=== PATIENT | female | born 2000 | race Caucasian/White ===

== ENCOUNTER 2022-12-10 10:01 | Outpatient (CLI) | payer OTHER, SELFPAY | END 2022-12-10 10:02 | disposition home or self-care (01) | LOC: FRMREF 10:02 | PROVIDERS: PCP Physician Assistant Medical; Visit Provider Physician Assistant Medical | DX: Z00.00 Encounter for general adult medical examination without abnormal findings (principal); Z11.3 Encounter for screening for infections with a predominantly sexual mode of transmission | CPT/HCPCS: 87491; 87591 ==

== ENCOUNTER 2024-02-13 07:50 | Outpatient (CLI) | payer OTHER, SELFPAY | END 2024-02-13 07:51 | disposition home or self-care (01) | LOC: NFLDREF 16:10 | PROVIDERS: PCP Physician Assistant Medical; Referring Provider Physician Assistant Medical; Visit Provider Physician Assistant Medical | DX: Z00.00 Encounter for general adult medical examination without abnormal findings (principal); A74.9 Chlamydial infection, unspecified; Z78.9 Other specified health status | CPT/HCPCS: 87491; 87591 ==

== ENCOUNTER 2025-04-15 07:35 | Outpatient (CLI) | payer OTHER, SELFPAY | END 2025-04-15 07:36 | disposition home or self-care (01) | PROVIDERS: PCP Physician Assistant Medical; Visit Provider Physician Assistant Medical | DX: Z00.00 Encounter for general adult medical examination without abnormal findings (principal); Z11.3 Encounter for screening for infections with a predominantly sexual mode of transmission | CPT/HCPCS: 80053; 80061; 84443; 87491; 87591 ==